=== PATIENT | male | born 2000 | race Caucasian/White ===

== ENCOUNTER → 2022-06-17 14:56 | Outpatient (CLI) | payer OTHER, SELFPAY ==
--- NOTE | 2022-06-17 | DI.MRI.S_ITS ---
PROCEDURE: MR ANKLE RT WO CON INDICATIONS: Sprain of unspecified ligament of unspecified ankle, initial TECHNIQUE: Noncontrast sagittal T1 spin echo and T2 fast spin echo with fat saturation, axial proton density fast spin echo and T2 fast spin echo with fat saturation, coronal T1 spin echo and T2 fast spin echo with fat saturation through the ankle/hindfoot. COMPARISON: None. FINDINGS: Image quality: Excellent. Bones and joints: There is marrow edema involving posterior and lateral aspect of talus with suggestion of tiny 5 millimeter osteochondral injury involving posterior lateral talar dome. Marrow edema is also seen involving lateral malleolus tip without discrete fracture line. No other osteochondral injury or marrow edema is seen. Small to moderate amount of tibiotalar joint effusion is seen, no gross loose bodies. No hindfoot coalition. No suspicious bony lesion. Medial structures: The posterior tibialis, flexor digitorum longus, and flexor hallucis longus tendons are intact. The posterior tibial neurovascular bundle appears normal within the tarsal tunnel, without extrinsic mass effect. The deep layer (anterior and posterior tibiotalar ligaments) and superficial layer (tibionavicular, tibiospring, and tibiocalcaneal ligaments) of the deltoid ligament appear normal. The spring ligament components (superomedial calcaneonavicular, medioplantar oblique calcaneonavicular, and inferoplantar longitudinal ligaments) are intact. Lateral structures: The anterior talofibular, calcaneofibular, and posterior talofibular ligaments appear thickened with intrasubstance T2 hyperintense signal. More superiorly, the anterior and posterior tibiofibular ligaments appear intact, as is the intermalleolar ligament. The tibiofibular syndesmosis is normal in width at 2 mm or less. The peroneus longus and brevis tendons are thickened at the level of lateral malleolus tip extending to the level of calcaneocuboid joint. Adjacent bony peroneal tubercle and retrotrochlear prominence are normal in size. The sinus tarsi demonstrates normal fatty signal, without edema, fibrosis, or cyst formation. Visualized sinus tarsi components (cervical ligament, interosseous talocalcaneal ligament, roots of the inferior extensor retinaculum) appear normal. The calcaneonavicular and calcaneocuboid components of the bifurcate ligament appear intact. The dorsal calcaneocuboid ligament appears intact. Anterior structures: The tibialis anterior, extensor hallucis longus, and extensor digitorum longus tendons appear intact. The dorsal talonavicular ligament appears intact. Posterior and plantar structures: Achilles tendon is intact. Medial and lateral bands of the plantar fascia are of normal thickness. No abductor digiti quinti muscle atrophy to suggest Varner neuropathy. IMPRESSION: 1. Bony contusion involving posterior aspect of lateral malleolus tip. Contusion and a tiny osteochondral injury involving posterior lateral periphery of talar dome. No other area of abnormal marrow signal. Moderate tibiotalar joint effusion, no gross loose bodies. 2. Tendinosis involving peroneus tendons at the level of lateral malleolus tip extending to the level of calcaneocuboid joint. Rest of the ankle tendons are intact. 3. Low to moderate grade intrasubstance partial-thickness tear involving anterior and posterior talofibular ligaments and calcaneofibular ligament. No full-thickness ligament rupture. Dictated by: Tino Bhatti M.D. on 06/17/2022 at 16:59 Approved by: Tino Bhatti M.D. on 06/17/2022 at 17:04
== END ==
PROVIDERS: PCP Hospitalist; Referring Provider Podiatrist; Visit Provider Podiatrist
DX: S90.01XA Contusion of right ankle, initial encounter (principal); S93.491A Sprain of other ligament of right ankle, initial encounter; S93.411A Sprain of calcaneofibular ligament of right ankle, initial encounter; M25.471 Effusion, right ankle; X58.XXXA Exposure to other specified factors, initial encounter
CPT/HCPCS: 73721